=== PATIENT | male | born 1930 | race Caucasian/White ===

== ENCOUNTER 2017-08-10 10:49 | Outpatient (CLI) | payer MEDICARE ==
[2017-08-10] MEDS ORDERED: Gadobenate Dimeglumine 529 MG/1 ML (20ML VIAL) ONE (13:09)
--- NOTE | 2017-08-10 14:44 | MRI ---
BRAIN MRI WITH AND WITHOUT CONTRAST: Date: 08-10-17 Comparison: 09-17-14 History: Prior stroke, anosmia, history of tremor. Technique: Multiplanar multisequence MR imaging of the brain obtained with and without contrast using an internal auditory canal protocol. FINDINGS: The diffusion weighted imaging demonstrates no evidence for acute infarction. Arterial flow voids at the axial level of the skull base appear grossly unremarkable. There is a T1 and T2 hyperintense scalp lesion in the right frontal region, stable, evidence of a sta ble lipoma. There is extensive periventricular deep and subcortical white matter T2 and FLAIR hyperintensity, isidro dence of significant small vessel disease. Imaged paranasal sinuses/mastoid air cells appear well aerated. Thin section T2 weighted imaging through the skull base demonstrates normal signal intensity in the r egion of the cerebellopontine angle, AIC, cochlea, vestibule, and semicircular canals bilaterally. Thin section post contrast imaging at the level of the skull base demonstrates no abnormal enhancemen t within the CP angle, AIC, cochlea, vestibule, or semicircular canals on either side. Whole brain po st contrast imaging is unremarkable. There is no mass in the region of the cribriform plate. IMPRESSION: Small vessel disease and cerebral volume loss. No acute findings. POS: [facility]
== END 2017-08-10 10:50 | disposition home or self-care (01) ==
LOC: MRI 10:49
PROVIDERS: ATTEND Otolaryngology Otolaryngic Allergy
DX: R43.0 Anosmia (principal); I73.9 Peripheral vascular disease, unspecified
CPT/HCPCS: 70553; 82565; A9579

== ENCOUNTER 2018-06-13 13:34 | Emergency (ER) | payer MEDICARE ==
[2018-06-13 14:18] LABS: Hemoglobin 10.2 g/dL (14.0-18.0); Mean Corpuscular HGB CONC 30.9 g/dL (32.0-36.0); Mean Corpuscular Hemoglobin 34.9 pg (27.0-31.0); Mean Platelet Volume 7.2 fL (7.4-10.4); Platelet Count 170 thou/uL (130-400); RBC Distribution Width 14.3 % (11.5-14.5); Red Blood Cell (RBC) Count 2.93 mill/uL (4.70-6.10); White Blood Cell (WBC) Count 8.8 thou/uL (4.8-10.8)
[2018-06-13 14:42] LABS: ALT (SGPT) 8 U/L (8-55); AST (SGOT) 20 U/L (5-34); Albumin 3.7 g/dL (3.4-4.8); Alkaline Phosphatase 71 U/L (40-150); Anion Gap 15 mmol/L (10-20); BUN (Urea Nitrogen) 20 mg/dL (8.4-25.7); Bilirubin, Total 0.5 mg/dL (0.2-1.2); Calc. Creatinine Clearance 0 mL/min (70-130); Calcium 9.3 mg/dL (7.8-10.44); Carbon Dioxide 21 mmol/L (23-31); Chloride 104 mmol/L (98-107); Estimated GFR-MDRD 64; Globulin 3.1 g/dL (2.4-3.5); Glucose 127 mg/dL (83-110); Potassium 4.3 mmol/L (3.5-5.1); Protein, Total 6.8 g/dL (5.8-8.1); Sodium 136 mmol/L (136-145)
[2018-06-13 14:47] LABS: Band 2 % (5-11); Eosinophils 4 % (0-10); Lymphocytes 88 % (21-51); MDiff Complete? YES; Macrocytosis SLIGHT = 6-15 cells (100X) (0-5/hpf); Monocytes 1 % (0-10); Neutrophil 5 % (42-75); Poikilocytosis SLIGHT = 6-15 cells (100X) (0-5/hpf)
--- NOTE | 2018-06-13 14:50 | RAD ---
SINGLE VIEW OF THE CHEST: Comparison: None. History: Chest pain, near syncope. FINDINGS: Single view of the chest shows a normal sized cardiomediastinal silhouette. There is no evidence of c onsolidation, mass, or pleural effusion. The bones are unremarkable. IMPRESSION: No evidence of acute cardiopulmonary disease. POS: [facility]
[2018-06-13 15:20] LABS: CKMB 2.1 ng/mL (0-6.6)
[2018-06-13 17:36] LABS: Troponin I 0.284 ng/mL (< 0.028)
[2018-06-13 21:29] LABS: CKMB 3.3 ng/mL (0-6.6)
--- NOTE | 2018-06-16 13:48 | EKG ---
Test Reason : Blood Pressure : / mmHG Vent. Rate : 086 BPM Atrial Rate : 086 BPM P-R Int : 156 ms QRS Dur : 088 ms QT Int : 378 ms P-R-T Axes : 058 033 022 degrees QTc Int : 452 ms Normal sinus rhythm Nonspecific ST abnormality Abnormal ECG Confirmed by BAILEY KWONG DO ([id number]), editorial director NATHANAEL RODRIGUEZ ([id number] on 06/16/2018 1:47:45 PM Referred By: Confirmed By:BAILEY KWONG DO
== END 2018-06-13 22:04 | disposition short-term general hospital (02) ==
LOC: ERS 13:34
DX: R55 Syncope and collapse (principal); R79.89 Other specified abnormal findings of blood chemistry; G20 Parkinson's disease; Z87.891 Personal history of nicotine dependence; Z85.821 Personal history of Merkel cell carcinoma
CPT/HCPCS: 36415; 71045; 80053; 82553; 84484; 85025; 93005